=== PATIENT | male | born 1960 | race Caucasian/White ===

== ENCOUNTER 2019-02-05 07:24 | Observation (INO) ==
[2019-02-05] MEDS ORDERED: ONDANSETRON 4 MG/2 ML VIAL IV PRN ×2 (07:53→09:04)
[2019-02-05] MEDS ORDERED: NITROGLYCERIN 2% OINT 1 INCH/GM PACK TOP STA (07:53)
[2019-02-05] MEDS ORDERED: ENOXAPARIN 100 MG/ML SYRINGE SUBCUT STA (07:53)
[2019-02-05] MEDS ORDERED: ASPIRIN 325 MG TABLET PO STA (07:53)
[2019-02-05 07:58] LABS: Basophils # 0.1 10*3/uL (0.0-0.2); Basophils % 0.9 % (0.0-0.8); Eosinophils # 0.1 10*3/uL (0.0-0.87); Eosinophils % 1.8 % (0.00-10.9); Hematocrit 43.3 VOL% (42.0-52.0); Hemoglobin 15.3 GM/DL (14.0-18.0); Immature Granulocytes % 0.3 %; Immature Granulocytes Absolute 0.02 #; Lymphocytes % 29.4 % (21.2-54.2); Mean Corpuscular HGB Conc 35.3 GM/DL (32-36); Mean Corpuscular Volume 94.1 FL (87-102); Mean Platelet Volume 11.8 FL (9.6-12.0); Neutrophils % 58.6 % (38.7-73.9); Platelet Count 124 T/CUMM (130-400); White Blood Count 6.8 T/CUMM (4-12)
[2019-02-05 08:16] LABS: Bilirubin,Total 0.7 MG/DL (0.2-1.0); Calcium 8.9 MG/DL (8.5-10.1); Osmolality,Calculated 292.7 MOS/KG (273-304); Total Protein 6.5 G/DL (6.4-8.3)
[2019-02-05] MEDS ORDERED: ZALEPLON 5 MG CAPSULE PO PRN (09:04)
[2019-02-05] MEDS ORDERED: MORPHINE 4 MG/1 ML VIAL IV PRN (09:04)
[2019-02-05] MEDS ORDERED: ACETAMINOPHEN 325 MG TABLET PO PRN (09:04)
[2019-02-05] MEDS ORDERED: MAGNESIUM SULF RIDER 2 GM in PREMIX 1 EACH IV PRN (09:04)
[2019-02-05] MEDS ORDERED: MAGNESIUM HYDROXIDE SUSP 30 ML UDCUP PO PRN (09:04)
[2019-02-05] MEDS ORDERED: BISACODYL 5 MG TABLET PO PRN (09:04)
[2019-02-05] MEDS ORDERED: ALUM/MAG/SIMETH/LIDO VISC 1:1 30 ML BOTTLE PO PRN (09:04)
[2019-02-05] MEDS ORDERED: MAGNESIUM SULF RIDER 4 GM in PREMIX 1 EACH IV PRN (09:04)
[2019-02-05] MEDS ORDERED: POTASSIUM CHLORIDE 20 MEQ TABLET PO PRN ×2 (09:04)
[2019-02-05] MEDS ORDERED: INSULIN REGULAR 100 UNIT/ML SUBCUT ONE (09:04)
[2019-02-05] MEDS ORDERED: amLODIPine 5 MG TABLET PO ONE (09:08)
[2019-02-05] MEDS ORDERED: hydrALAZINE 20 MG/1 ML VIAL IV PRN (09:08)
[2019-02-05] MEDS ORDERED: ALUM/MAG/SIMETH/LIDO VISC 1:1 30 ML BOTTLE PO ONE (09:19)
[2019-02-05] MEDS ORDERED: PANTOPRAZOLE 40 MG VIAL IV ONE (09:19)
[2019-02-05] MEDS: HEPARIN 5,000 UNIT/1 ML VIAL SUBCUT SCH ×2 (10:17→17:47)
[2019-02-05 11:29] LABS: Risk Ratio 3.98; VLDL CHOLESTEROL 17.4 MG/DL
[2019-02-05 11:49] LABS: Free T4 (Free Thyroxine) 0.89 NG/DL (0.76-1.46); Thyroid Stimulating Hormone 0.796 uIU/ml (0.358-3.74)
[2019-02-05] MEDS ORDERED: INSULIN REGULAR 100 UNIT/ML SUBCUT SCH (12:00)
[2019-02-05 13:57] LABS: Apearance,Urine CLEAR (Clear); Bilirubin,Urine Negative (Negative); Blood, Urine Negative (Negative); Glucose,Urine (UA) Negative (Negative); Hyaline Casts,Urine 1 /LPF (0-3); Ketones,Urine Negative (Negative); Mucus,Urine Occasional /LPF (Occasional); Nitrite,Urine Negative (Negative); Protein,Urine Negative; RBC,Urine 2 /HPF (0-4); Urine Color Yellow (Yellow); Urine Specific Gravity 1.025 (1.001-1.035); Urine Urobilinogen < 2.0 EU/DL (0.2-1.0); WBC,Urine 1 /HPF (0-6)
[2019-02-05] MEDS: FAMOTIDINE 20 MG TABLET PO SCH (20:18)
[2019-02-05] MEDS: carvediloL 6.25 MG TABLET PO SCH (20:18)
[2019-02-05] MEDS: INSULIN REGULAR 100 UNIT/ML SUBCUT SCH (21:00)
[2019-02-05] MEDS ORDERED: ROSUVASTATIN 20 MG TABLET PO SCH (21:00)
[2019-02-06] MEDS: HEPARIN 5,000 UNIT/1 ML VIAL SUBCUT SCH ×2 (01:37→09:31)
[2019-02-06] MEDS: NITROGLYCERIN SL 0.4 MG TABLET SL PRN ×3 (04:35→04:45)
[2019-02-06 07:22] LABS: Calcium 8.4 MG/DL (8.5-10.1); Osmolality,Calculated 293.8 MOS/KG (273-304)
[2019-02-06] MEDS: INSULIN REGULAR 100 UNIT/ML SUBCUT SCH (07:31)
[2019-02-06 08:04] VITALS: BP 100/62
[2019-02-06 08:06] LABS: Basophils # 0.1 10*3/uL (0.0-0.2); Basophils % 0.9 % (0.0-0.8); Eosinophils # 0.1 10*3/uL (0.0-0.87); Eosinophils % 1.3 % (0.00-10.9); Hematocrit 42.5 VOL% (42.0-52.0); Hemoglobin 14.7 GM/DL (14.0-18.0); Immature Granulocytes % 0.6 %; Immature Granulocytes Absolute 0.04 #; Lymphocytes # 1.7 10*3/uL (1.4-4.0); Lymphocytes % 24.5 % (21.2-54.2); Mean Corpuscular HGB Conc 34.6 GM/DL (32-36); Mean Corpuscular Volume 95.7 FL (87-102); Mean Platelet Volume 11.6 FL (9.6-12.0); Monocytes % 7.9 % (1.7-12.7); Neutrophils % 64.8 % (38.7-73.9); Platelet Count 128 T/CUMM (130-400); Red Blood Count 4.44 MC/CUMM (3.8-5.5); Red Cell Distribution Width 11.9 % (9.3-17.3); White Blood Count 6.9 T/CUMM (4-12)
[2019-02-06 08:30] LABS: Hypochromasia 1+; Platelet Estimate Adequate
[2019-02-06] MEDS ORDERED: LISINOPRIL 5 MG TABLET PO SCH (09:00)
[2019-02-06] MEDS ORDERED: ASPIRIN EC 81 MG TABLET PO SCH (09:00)
[2019-02-06] MEDS: FAMOTIDINE 20 MG TABLET PO SCH (09:31)
[2019-02-06] MEDS: carvediloL 6.25 MG TABLET PO SCH (09:31)
[2019-02-06] MEDS ORDERED: INFLUENZA VIRUS VACCINE 0.5 ML SYRINGE IM ONE (10:02)
== END 2019-02-06 09:40 | disposition home or self-care (01) ==
LOC: N.ED 07:24 → N.EDINP 08:38 → INTOOBSV 08:38 → N.2W 08:57
PROVIDERS: ADMIT Internal Medicine; ATTEND Internal Medicine

== ENCOUNTER 2019-02-08 08:02 | Observation (INO) ==
[2019-02-08] MEDS ORDERED: ASPIRIN 325 MG TABLET PO STA (09:02)
[2019-02-08 09:38] LABS: Basophils # 0.1 10*3/uL (0.0-0.2); Basophils % 0.8 % (0.0-0.8); Eosinophils # 0.1 10*3/uL (0.0-0.87); Eosinophils % 1.7 % (0.00-10.9); Hemoglobin 15.5 GM/DL (14.0-18.0); Immature Granulocytes % 0.5 %; Immature Granulocytes Absolute 0.03 #; Lymphocytes # 1.5 10*3/uL (1.4-4.0); Lymphocytes % 22.1 % (21.2-54.2); Mean Corpuscular Volume 92.9 FL (87-102); Mean Platelet Volume 11.4 FL (9.6-12.0); Monocytes % 9.8 % (1.7-12.7); Neutrophils % 65.1 % (38.7-73.9); Platelet Count 123 T/CUMM (130-400); Red Blood Count 4.63 MC/CUMM (3.8-5.5); White Blood Count 6.6 T/CUMM (4-12)
[2019-02-08 09:50] LABS: Albumin 3.8 G/DL (3.4-5.0); Bilirubin,Total 0.8 MG/DL (0.2-1.0); Calcium 8.4 MG/DL (8.5-10.1); Osmolality,Calculated 284.3 MOS/KG (273-304); Total Protein 6.9 G/DL (6.4-8.3)
[2019-02-08 11:04] LABS: Apearance,Urine CLEAR (Clear); Bacteria,Urine Occasional /HPF (Few); Bilirubin,Urine Negative (Negative); Blood, Urine Negative (Negative); Glucose,Urine (UA) Negative (Negative); Ketones,Urine Negative (Negative); Mucus,Urine Occasional /LPF (Occasional); Nitrite,Urine Negative (Negative); Protein,Urine Negative; RBC,Urine 2 /HPF (0-4); Urine Color Yellow (Yellow); Urine Specific Gravity 1.017 (1.001-1.035); WBC,Urine 1 /HPF (0-6)
[2019-02-08] MEDS ORDERED: HYDROmorphone 2 MG/1 ML VIAL IV STA (12:39)
[2019-02-08] MEDS ORDERED: ONDANSETRON 4 MG/2 ML VIAL IV STA (12:39)
[2019-02-08] MEDS ORDERED: ONDANSETRON 4 MG/2 ML VIAL IV PRN (12:41)
[2019-02-08] MEDS: SODIUM CHLORIDE 0.45% 1,000 ML IV SCH ×2 (13:07→21:17)
[2019-02-08] MEDS: HYDROmorphone 2 MG/1 ML VIAL IV PRN ×2 (14:53→19:44)
[2019-02-08] MEDS: KETOROLAC 30 MG/1 ML VIAL IV PRN (22:05)
[2019-02-09] MEDS: HYDROmorphone 2 MG/1 ML VIAL IV PRN ×2 (01:31→15:05)
[2019-02-09] MEDS: SODIUM CHLORIDE 0.45% 1,000 ML IV SCH ×3 (04:58→21:08)
[2019-02-09] MEDS: KETOROLAC 30 MG/1 ML VIAL IV PRN ×3 (04:59→21:07)
[2019-02-09 05:08] LABS: Basophils # 0.1 10*3/uL (0.0-0.2); Eosinophils # 0.1 10*3/uL (0.0-0.87); Eosinophils % 2.2 % (0.00-10.9); Hematocrit 40.8 VOL% (42.0-52.0); Hemoglobin 14.3 GM/DL (14.0-18.0); Immature Granulocytes % 0.5 %; Immature Granulocytes Absolute 0.03 #; Lymphocytes # 1.4 10*3/uL (1.4-4.0); Lymphocytes % 23.1 % (21.2-54.2); Mean Platelet Volume 11.6 FL (9.6-12.0); Monocytes % 10.9 % (1.7-12.7); Neutrophils % 62.3 % (38.7-73.9); Platelet Count 108 T/CUMM (130-400); Red Blood Count 4.34 MC/CUMM (3.8-5.5); Red Cell Distribution Width 11.9 % (9.3-17.3); White Blood Count 5.9 T/CUMM (4-12)
[2019-02-09 05:39] LABS: Albumin 3.3 G/DL (3.4-5.0); Bilirubin,Total 0.7 MG/DL (0.2-1.0); Calcium 8.5 MG/DL (8.5-10.1); Osmolality,Calculated 289.8 MOS/KG (273-304); Total Protein 5.9 G/DL (6.4-8.3)
[2019-02-09] MEDS: PANTOPRAZOLE 40 MG TABLET PO SCH (08:20)
[2019-02-09] MEDS ORDERED: DEXTROSE 50% 25 GM/50 ML VIAL IV PRN (11:37)
[2019-02-09] MEDS ORDERED: GLUCAGON 1 MG VIAL IM PRN (11:37)
[2019-02-09] MEDS ORDERED: ACETAMINOPHEN 650 MG SUPP RECTAL PRN (11:42)
[2019-02-09] MEDS ORDERED: NITROGLYCERIN SL 0.4 MG TABLET SL PRN (13:00)
[2019-02-09] MEDS ORDERED: INDOCYANINE GREEN 25 MG VIAL IV ONE (13:01)
[2019-02-09] MEDS: CALAMINE LOTION 180 ML BOTTLE TOP SCH ×3 (13:11→21:15)
[2019-02-09] MEDS: ACYCLOVIR INJ 1,000 MG in SODIUM CHLORIDE 0.9% 250 ML IV SCH ×2 (13:11→20:53)
[2019-02-09] MEDS: GABAPENTIN 100 MG CAPSULE PO SCH ×2 (15:04→21:07)
[2019-02-09] MEDS ORDERED: hydrALAZINE 20 MG/1 ML VIAL IV PRN (15:18)
[2019-02-09] MEDS: carvediloL 6.25 MG TABLET PO SCH (21:07)
[2019-02-10] MEDS: ACYCLOVIR INJ 1,000 MG in SODIUM CHLORIDE 0.9% 250 ML IV SCH ×2 (04:27→19:08)
[2019-02-10] MEDS: HYDROmorphone 2 MG/1 ML VIAL IV PRN ×5 (05:47→11:20)
[2019-02-10 05:50] LABS: Basophils # 0.1 10*3/uL (0.0-0.2); Basophils % 0.9 % (0.0-0.8); Eosinophils # 0.1 10*3/uL (0.0-0.87); Eosinophils % 1.9 % (0.00-10.9); Hematocrit 43.4 VOL% (42.0-52.0); Hemoglobin 15.4 GM/DL (14.0-18.0); Immature Granulocytes % 0.2 %; Immature Granulocytes Absolute 0.01 #; Lymphocytes % 19.1 % (21.2-54.2); Mean Corpuscular HGB Conc 35.5 GM/DL (32-36); Mean Corpuscular Volume 93.3 FL (87-102); Mean Platelet Volume 11.5 FL (9.6-12.0); Monocytes % 8.8 % (1.7-12.7); Neutrophils % 69.1 % (38.7-73.9); Platelet Count 127 T/CUMM (130-400); Red Blood Count 4.65 MC/CUMM (3.8-5.5); Red Cell Distribution Width 11.9 % (9.3-17.3); White Blood Count 5.3 T/CUMM (4-12)
[2019-02-10] MEDS ORDERED: DIAZEPAM 5 MG TABLET PO ONE (06:00)
[2019-02-10] MEDS ORDERED: FAMOTIDINE 20 MG TABLET PO ONE (06:00)
[2019-02-10 06:11] LABS: Albumin 3.5 G/DL (3.4-5.0); Calcium 8.5 MG/DL (8.5-10.1); Osmolality,Calculated 279.4 MOS/KG (273-304); Total Protein 6.5 G/DL (6.4-8.3)
[2019-02-10] MEDS: SODIUM CHLORIDE 0.45% 1,000 ML IV SCH ×4 (06:39→21:14)
[2019-02-10] MEDS: KETOROLAC 30 MG/1 ML VIAL IV PRN (06:39)
[2019-02-10] MEDS ORDERED: cefOXitin 2,000 MG in SYRINGE 1 EACH IV ONE (08:00)
[2019-02-10] MEDS ORDERED: TISSUE ADHESIVE 1 EACH APPLICATOR TOP ONE (09:04)
[2019-02-10] MEDS ORDERED: BUPIVACAINE MPF 0.25% 30 ML VIAL ONE (09:04)
[2019-02-10] MEDS ORDERED: LIDOCAINE 1%/EPI INJ 20 ML VIAL ONE (09:04)
[2019-02-10] MEDS ORDERED: ONDANSETRON 4 MG/2 ML VIAL ONE ×2 (10:51→11:01)
[2019-02-10] MEDS ORDERED: ACETAMINOPHEN 1,000 MG/100 ML VIAL IV ONE (10:51)
[2019-02-10] MEDS ORDERED: MIDAZOLAM 2 MG/2 ML VIAL ONE (10:51)
[2019-02-10] MEDS ORDERED: PROPOFOL 200 MG/20 ML VIAL IV ONE (10:51)
[2019-02-10] MEDS ORDERED: GLYCOPYRROLATE 0.4 MG/2 ML VIAL ONE (10:51)
[2019-02-10] MEDS ORDERED: fentaNYL 100 MCG/2 ML VIAL ONE (10:51)
[2019-02-10] MEDS ORDERED: LIDOCAINE 2% 5 ML VIAL ONE (10:51)
[2019-02-10] MEDS ORDERED: NEOSTIGMINE 10 MG/10 ML VIAL ONE (10:52)
[2019-02-10] MEDS ORDERED: LACTATED RINGERS 1,000 ML IV ONE (10:52)
[2019-02-10] MEDS ORDERED: ROCURONIUM 100 MG/10 ML VIAL IV ONE (10:52)
[2019-02-10] MEDS ORDERED: ePHEDrine 50 MG/ML AMP ONE (10:52)
[2019-02-10] MEDS ORDERED: SUCCINYLCHOLINE 200 MG/10 ML VIAL ONE (10:52)
[2019-02-10] MEDS ORDERED: ONDANSETRON 4 MG/2 ML VIAL IV PRN (10:59)
[2019-02-10] MEDS ORDERED: HYDROmorphone 2 MG/1 ML VIAL ONE (11:01)
[2019-02-10] MEDS: CALAMINE LOTION 180 ML BOTTLE TOP SCH ×4 (14:07→21:08)
[2019-02-10] MEDS: GABAPENTIN 100 MG CAPSULE PO SCH ×3 (14:10→21:07)
[2019-02-10] MEDS: carvediloL 6.25 MG TABLET PO SCH ×2 (14:10→21:07)
[2019-02-10] MEDS: ASPIRIN EC 81 MG TABLET PO SCH (14:11)
[2019-02-10] MEDS: PANTOPRAZOLE 40 MG TABLET PO SCH (14:11)
[2019-02-10] MEDS: valACYclovir 500 MG TABLET PO SCH ×2 (14:11→21:07)
[2019-02-10] MEDS: LISINOPRIL 5 MG TABLET PO SCH (14:11)
[2019-02-10] MEDS ORDERED: traMADol 50 MG TABLET PO PRN (14:40)
[2019-02-11] MEDS: SODIUM CHLORIDE 0.45% 1,000 ML IV SCH (05:22)
[2019-02-11] MEDS: GABAPENTIN 100 MG CAPSULE PO SCH (08:17)
[2019-02-11] MEDS: carvediloL 6.25 MG TABLET PO SCH (08:17)
[2019-02-11] MEDS: CALAMINE LOTION 180 ML BOTTLE TOP SCH (08:17)
[2019-02-11] MEDS: PANTOPRAZOLE 40 MG TABLET PO SCH (08:17)
[2019-02-11] MEDS: ASPIRIN EC 81 MG TABLET PO SCH (08:17)
[2019-02-11] MEDS: LISINOPRIL 5 MG TABLET PO SCH (08:17)
[2019-02-11] MEDS: valACYclovir 500 MG TABLET PO SCH (08:17)
[2019-02-11 08:28] VITALS: BP 125/75
== END 2019-02-11 09:40 | disposition home or self-care (01) ==
LOC: N.ED 08:02 → N.EDINP 08:02 → N.3E 13:40
PROVIDERS: ADMIT Surgery; ATTEND Surgery